=== PATIENT | female | born 1975 | race Caucasian/White ===

== ENCOUNTER 2018-06-09 14:46 | Emergency (ER) | payer OTHER ==
[2018-06-09] MEDS: ASPIRIN 81 MG TAB PO (16:33)
[2018-06-09] MEDS: metFORMIN 850 MG TAB PO (16:34)
[2018-06-09] MEDS: HYDROCHLOROTHIAZIDE 25 MG TAB PO (16:34)
[2018-06-09] MEDS: AMLODIPINE 10 MG TAB PO (16:34)
[2018-06-09] MEDS: ACCU-CHEK XX ×2 (16:37)
== END 2018-06-09 16:59 | disposition home or self-care (01) ==
LOC: E/R 14:46
DX: I10 Essential (primary) hypertension (principal); R06.00 Dyspnea, unspecified; R51 Headache; E11.9 Type 2 diabetes mellitus without complications; Z79.82 Long term (current) use of aspirin; Z79.84 Long term (current) use of oral hypoglycemic drugs
CPT/HCPCS: 82962; 93005; 99283-25

== ENCOUNTER 2019-06-19 20:17 | Observation (INO) | payer OTHER ==
[2019-06-19 22:35] LABS: ADD MAN DIFF? NO
[2019-06-19 22:39] LABS: BASOPHIL # 0.1 10^3/ul (0.0-0.1); BASOPHILS % 0.5 % (0.0-2.0); EOSINOPHILS # 0.2 10^3/ul (0.0-0.5); EOSINOPHILS % 1.8 % (0.0-7.0); HEMATOCRIT 39.6 % (37.0-47.0); HEMOGLOBIN 13.6 g/dl (12.0-16.0); LYMPHOCYTES # 3.5 10^3/ul (0.8-2.9); LYMPHOCYTES % 35.6 % (15.0-51.0); MEAN CORPUSCULAR HEMOGLOBIN 31.7 pg (29.0-33.0); MEAN CORPUSCULAR HGB CONC 34.3 g/dl (32.0-37.0); MEAN CORPUSCULAR VOLUME 92.3 fl (82.0-101.0); MONOCYTE # 0.9 10^3/ul (0.3-0.9); MONOCYTES % 8.6 % (0.0-11.0); NEUTROPHIL # 5.2 10^3/ul (1.6-7.5); NEUTROPHILS % 53.3 % (39.0-77.0); PLATELET COUNT 264 10^3/UL (140-415); RED BLOOD COUNT 4.29 10^6/ul (4.20-5.40)
[2019-06-19 22:39] LABS: WHITE BLOOD COUNT 9.8 10^3/ul (4.8-10.8)
[2019-06-19 22:56] LABS: ALANINE AMINOTRANSFERASE 24 IU/L (13-69); ALBUMIN 3.8 g/dl (3.3-4.9); ALKALINE PHOSPHATASE 76 IU/L (42-121); ANION GAP 7 (5-13); ASPARTATE AMINO TRANSFERASE 18 IU/L (15-46); BILIRUBIN,INDIRECT 0.1 mg/dl (0-1.1); BILIRUBIN,TOTAL 0.1 mg/dl (0.2-1.3); BLOOD UREA NITROGEN 22 mg/dl (7-20); CALCIUM 8.5 mg/dl (8.4-10.2); CARBON DIOXIDE 32 mmol/L (21-31); CHLORIDE 99 mmol/L (97-110); CREATININE 0.86 mg/dl (0.44-1.00); Estimated GFR > 60 mL/min (>60); GLUCOSE 124 mg/dl (70-220); SODIUM 138 mmol/L (135-144)
[2019-06-19 23:07] LABS: TROPONIN-I < 0.012 ng/ml (0.000-0.120)
[2019-06-20] MEDS: IOHEXOL 300MG/ML 150 ML BTL (01:18)
[2019-06-20] MEDS: SOD CHLORIDE 0.9% 100 ML (01:18)
[2019-06-20] MEDS ORDERED: ONDANSETRON 4 MG INJ IV (01:30)
[2019-06-20] MEDS: AMLODIPINE 10 MG TAB PO (08:24)
[2019-06-20] MEDS: HYDROCHLOROTHIAZIDE 25 MG TAB PO (08:24)
[2019-06-20] MEDS: ASPIRIN 81 MG TAB PO (08:24)
[2019-06-20] MEDS: ACETAMINOPHEN 325 MG TAB PO ×2 (08:41→16:54)
[2019-06-20] MEDS: POTASSIUM CHLORIDE (SR) 20 MEQ TAB PO (10:41)
[2019-06-20] MEDS: LISINOPRIL 20 MG TAB PO (10:41)
[2019-06-20] MEDS: ATORVASTATIN 20 MG TAB PO (20:16)
[2019-06-21] MEDS: HYDROCHLOROTHIAZIDE 25 MG TAB PO (08:42)
[2019-06-21] MEDS: ASPIRIN 81 MG TAB PO (08:42)
[2019-06-21] MEDS: AMLODIPINE 10 MG TAB PO (08:43)
[2019-06-21] MEDS: LISINOPRIL 20 MG TAB PO (08:43)
[2019-06-21] MEDS: ACETAMINOPHEN 325 MG TAB PO ×2 (10:05→16:54)
[2019-06-21 11:25] LABS: CHOL/HDL RATIO 3.8 RATIO; HDL CHOLESTEROL 39 mg/dl (34-88); LDL CHOLESTEROL,CALCULATED 84 mg/dl; TRIGLYCERIDES 147 mg/dl (0-149)
[2019-06-21 11:25] LABS: CHOLESTEROL 152 mg/dl (100-200)
[2019-06-21 11:39] LABS: HEMOGLOBIN A1C 5.4 % (0-5.9)
[2019-06-21 12:42] LABS: ERYTHROCYTE SEDIMENTATION RATE 25 mm/Hr (0-20)
[2019-06-21 13:37] LABS: HIV 1&2 ANTIBODY NEGATIVE (NEGATIVE)
[2019-06-21 20:04] LABS: AMPHETAMINE/METHAMPHETAMINE Negative (NEGATIVE); BARBITURATES Negative (NEGATIVE); BENZODIAZEPINES Negative (NEGATIVE); CANNABINOIDS Negative (NEGATIVE); COCAINE Negative (NEGATIVE); OPIATES Negative (NEGATIVE)
[2019-06-21 21:20] LABS: RAPID PLASMA REAGIN NONREACTIVE (NR)
== END 2019-06-21 19:32 | disposition home or self-care (01) ==
LOC: E/R 20:17 → 6WM 06-20 01:20
DX: I63.9 Cerebral infarction, unspecified (principal); I10 Essential (primary) hypertension; E11.9 Type 2 diabetes mellitus without complications; Z79.82 Long term (current) use of aspirin; Z79.84 Long term (current) use of oral hypoglycemic drugs
CPT/HCPCS: 70450; 70496; 70498; 70551; 71045; 80053; 80061; 80307; 81025; 81240; 82962; 83036; 84484; 85025; 85300; 85302; 85305; 85613; 85651; 86038; 86146; 86147; 86592; 86703; 92610; 93005; 93306; 93880; 97110; 97116; 97161; 99285-25; G0378